=== PATIENT | female | born 1965 | race African-American/Black ===

== ENCOUNTER 2023-09-08 15:57 | Emergency (ER) | payer OTHER ==
[~2023-09-08] VITALS: Ht 167.6 cm; Wt 102.1 kg
[2023-09-08 16:16] VITALS: BP 123/90; TEMP 98.2; O2SAT 96
== END 2023-09-08 20:43 | disposition left against medical advice (07) ==
LOC: ER 16:04
DX: R52 Pain, unspecified (principal); Z53.21 Procedure and treatment not carried out due to patient leaving prior to being seen by health care provider